=== PATIENT | female | born 1990 | race Caucasian/White ===

== ENCOUNTER 2017-08-15 19:44 | Emergency (ER) | payer OTHER ==
[~2017-08-15] VITALS: Ht 157.5 cm; Wt 61.2 kg
--- NOTE | 2017-08-15 20:06 | NUR ---
Pt reports she was doing "box jumps" at the gym, and slipped resulting in a laceration on her left sams. C/O a burning pain
[2017-08-15] MEDS ORDERED: LIDOCAINE HCL 2% 20 ML VIAL TP ONE (20:15)
[2017-08-15] MEDS ORDERED: NEOMY/BACITRA/POLYMYXIN B OINT UD PACKET TP ONE ×2 (20:15→20:34)
[2017-08-15] MEDS ORDERED: SODIUM BICARBONATE 4.2 % (NEUT) 5 ML VIAL TP ONE (20:15)
[2017-08-15] MEDS ORDERED: LET TOPICAL SOLUTION 8 ML UDC TOP ONE (20:15)
[2017-08-15] MEDS ORDERED: TDAP DIPH,PERTUSS,TET VAC/PF 0.5 ML DISP.SYRIN IM ONE ×2 (20:15→20:34)
[2017-08-15] MEDS ORDERED: LET TOPICAL SOLUTION 8 ML UDC ONE (20:34)
--- NOTE | 2017-08-15 21:15 | NUR ---
at bedside for suturing.
--- NOTE | 2017-08-15 22:10 | NUR ---
Patient discharged to home in stable conditon. Written and verbal after care instructions given. Patient verbalizes understanding of instructions. No distress noted. Ambulated w/ steady gait on crutches.
[2017-08-15 22:12] VITALS: BP 105/69
== END 2017-08-15 22:13 | disposition home or self-care (01) ==
LOC: ER 19:44
DX: S81.812A Laceration without foreign body, left lower leg, initial encounter (principal); Z88.0 Allergy status to penicillin; X58.XXXA Exposure to other specified factors, initial encounter; Y93.89 Activity, other specified; Y92.89 Other specified places as the place of occurrence of the external cause; Y99.8 Other external cause status
CPT/HCPCS: 90715; A4217; A4663